=== PATIENT | male | born 1955 | race Caucasian/White ===

== ENCOUNTER 2019-02-22 07:32 | Outpatient (REF) | payer OTHER, SELFPAY ==
[2019-02-22 13:03] LABS: Anion Gap 8.3 mmol/L (3-11); BUN 17 mg/dL (7-18); CO2 26.7 mmol/L (21.0-32.0); CREATININE 0.92 mg/dL (0.70-1.30); Calcium 8.7 mg/dL (8.5-10.1); Chloride 104 mmol/L (98-107); Cholesterol 214 mg/dL (50-200); Glucose 90 mg/dL (70-100); HDL Cholesterol 75 mg/dL (40-60); LDL CHOLESTEROL 124 mg/dL (<100); Potassium 4.7 mmol/L (3.5-5.1); Sodium 139 mmol/L (136-145); Triglyceride 33 mg/dL (30-150)
== END 2019-02-22 07:52 ==
LOC: NCHCN 07:32
PROVIDERS: PCP Family Medicine; Visit Provider Family Medicine
DX: I10 Essential (primary) hypertension (principal); Z00.00 Encounter for general adult medical examination without abnormal findings; E66.9 Obesity, unspecified
CPT/HCPCS: 80048; 80061; 83721

== ENCOUNTER 2019-02-24 16:40 | Emergency (ER) | payer OTHER, SELFPAY ==
[2019-02-24 16:52] VITALS: BP 142/80; PULSE 66; RESP 16; TEMP 36; O2SAT 98
--- NOTE | 2019-02-24 17:17 | W.ED.GENAD ---
Discharge Plan Disposition Patient Disposition: HOME Condition: Stable Discharge Details Chief Complaint: Laceration Clinical Impression: Laceration of left wrist Primary Care Provider: Tony Strickland ED Provider: Bob Cabello Home Meds and New Rx's Prescriptions: Continued vitamin B complex 1 EACH capsule 1 ea PO DAILY RF: 0 valsartan 160 MG tablet 160 mg PO DAILY RF: 0 VITAMIN D3 2,000 UNIT capsule 2,000 unit PO DAILY RF: 0 ibuprofen [Advil] 200 MG tablet 2 tab PO PRN PRNRF: 0 Discharge Instructions Instructions: Laceration (ED) Additional Instructions: Please watch for any signs of infection and return immediately if these occur. Otherwise keep wound clean and dry and leave initial bandage on for the next 24 to 48 hours. After that point you may remove bandage and leave open to air and clean with mild soap and water. Return in 12 days for suture removal if healing well. Referrals: [facility] Emergency Dept. [Outside] (Return in 12 days for suture removal.) Medical Decision Making 1 cm laceration to left wrist. Wound thoroughly irrigated and wound was explored to base in bloodless field and shows only adipose tissue. Normal movement sensation and cap refill to thumb no other injuries noted. Patient gave verbal consent to wound closure. 2 mL's of 1% lidocaine was injected superficially for anesthetic control. #3 4-0 Ethilon simple interrupted sutures were utilized to close the wound. Wound was then covered with bacitracin and sterile bandage. Patient to watch for signs of infection return immediately if these occur otherwise to return in 12 days for suture removal. We could not verify the patient's tetanus status but he states that he travels out of the country quite often and is sure that his last tetanus was 5 years ago. Due to this fact I do not feel the patient needs tetanus at this time but patient was informed that he should verify last tetanus and received tetanus within 48 hours if it is not up-to-date. After discussion of diagnosis and plan of care patient has no further needs, questions, or concerns and states clear understanding to return to the emergency department for any worsening symptoms. HPI General Mode of arrival: ambulatory. Date/Time Provider Initiated Documentation: 02/24/19 17:17. Limitations to Documentation: no limitations. Information obtained by: RN notes reviewed. History of Present Illness 63 year old M presents to the emergency department with the chief complaint of Left wrist laceration, described as mild, with intensity rated at 3. Quality is described as sharp, and is localized to the left and upper extremity. Patient started experiencing this hour(s) (1) and it has been constant. No relieving factors improve symptom(s), Patient did receive the following treatments prior to arrival, none Related Data Home Medications Medication Instructions Recorded Confirmed Vitamin D3 2,000 unit PO DAILY 04/18/16 05/27/16 valsartan 160 mg PO DAILY 04/18/16 02/24/19 vitamin B complex 1 ea PO DAILY 04/18/16 02/24/19 ibuprofen [Advil] 2 tab PO PRN PRN 05/27/16 05/27/16 Allergies Allergy/AdvReac Type Severity Reaction Status Date / Time Penicillins Allergy Intermediate unknown, Unverified 05/27/16 08:39 but hospitalized as chiled due to reaction General Stated Complaint: Laceration RUDDY: 4 Review of Systems Cardiovascular Denies syncope and Denies lightheadedness Musculoskeletal Denies deformity, Denies limited range of motion and Denies numbness Integumentary/Breasts Reports as per HPI Neurologic Denies syncope, Denies numbness and Denies paresthesias [facility] Surgical History Colonoscopy - IV Sedation (05/27/16) Social History Smoking/Tobacco Use Status: Former Tobacco Use Drug use: Never Do you feel safe at home: Yes Do you feel safe in your relationship?: Yes Exam Const General: cooperative and no acute distress Orientation: alert, awake and oriented x3 Limitations: mental status not altered Resp Effort & Inspection: normal respiratory effort and able to speak in complete sentences Cardio Rate: regular rate Rhythm: regular rhythm Neuro General: alert, awake, oriented x3, gait normal, tone normal, moves all extremities, normal light touch, pain and propioception and no focal motor deficits Motor: no movement abnormalities noted Sensory Exam: no sensory deficits noted Extrem General: normal exam except as noted Left upper extremity: wrist Details: normal ROM, laceration (1 cm ), normal vascular exam and radial pulse present and hand Details: neuromotor exam normal, neurosensory exam normal and tendon exam normal Course Vital Signs Temperature 36 C L 02/24/19 16:52 Pulse 66 02/24/19 16:52 Respiratory Rate 16 02/24/19 16:52 Blood Pressure 142/80 H 02/24/19 16:52 Pulse Oximetry 98 02/24/19 16:52 Temperature 36 C L 02/24/19 16:52 Temperature Source Temporal Artery Scan 02/24/19 16:52 Pulse 66 02/24/19 16:52 Respiratory Rate 16 02/24/19 16:52 Blood Pressure 142/80 H 02/24/19 16:52 Pulse Oximetry 98 02/24/19 16:52 Oxygen Delivery Method Room Air 02/24/19 16:52 Oxygen Flow Rate 0 02/24/19 16:52 Pain Level 3 02/24/19 16:52
--- NOTE | 2019-02-24 17:20 | ED.GENADUL_ITS ---
Discharge Plan Disposition Patient Disposition: HOME Condition: Stable Discharge Details Chief Complaint: Laceration Clinical Impression: Laceration of left wrist Primary Care Provider: Tony Strickland ED Provider: Bob Cabello Home Meds and New Rx's Prescriptions: Continued vitamin B complex 1 EACH capsule 1 ea PO DAILY RF: 0 valsartan 160 MG tablet 160 mg PO DAILY RF: 0 VITAMIN D3 2,000 UNIT capsule 2,000 unit PO DAILY RF: 0 ibuprofen [Advil] 200 MG tablet 2 tab PO PRN PRNRF: 0 Discharge Instructions Instructions: Laceration (ED) Additional Instructions: Please watch for any signs of infection and return immediately if these occur. Otherwise keep wound clean and dry and leave initial bandage on for the next 24 to 48 hours. After that point you may remove bandage and leave open to air and clean with mild soap and water. Return in 12 days for suture removal if healing well. Referrals: [facility] Emergency Dept. [Outside] (Return in 12 days for suture removal.) Medical Decision Making 1 cm laceration to left wrist. Wound thoroughly irrigated and wound was explored to base in bloodless field and shows only adipose tissue. Normal movement sensation and cap refill to thumb no other injuries noted. Patient gave verbal consent to wound closure. 2 mL's of 1% lidocaine was injected superficially for anesthetic control. #3 4-0 Ethilon simple interrupted sutures were utilized to close the wound. Wound was then covered with bacitracin and sterile bandage. Patient to watch for signs of infection return immediately if these occur otherwise to return in 12 days for suture removal. We could not verify the patient's tetanus status but he states that he travels out of the country quite often and is sure that his last tetanus was 5 years ago. Due to this fact I do not feel the patient needs tetanus at this time but patient was informed that he should verify last tetanus and received tetanus within 48 hours if it is not up-to-date. After discussion of diagnosis and plan of care patient has no further needs, questions, or concerns and states clear understanding to return to the emergency department for any worsening symptoms. HPI General Mode of arrival: ambulatory . Date/Time Provider Initiated Documentation: 02/24/19 17:17 . Limitations to Documentation: no limitations . Information obtained by: RN notes reviewed . History of Present Illness 63 year old M presents to the emergency department with the chief complaint of Left wrist laceration, described as mild, with intensity rated at 3. Quality is described as sharp, and is localized to the left and upper extremity. Patient started experiencing this hour(s) (1) and it has been constant. No relieving factors improve symptom(s), Patient did receive the following treatments prior to arrival, none Related Data Home Medications Medication Instructions Recorded Confirmed Vitamin D3 2,000 unit PO DAILY 04/18/16 05/27/16 valsartan 160 mg PO DAILY 04/18/16 02/24/19 vitamin B complex 1 ea PO DAILY 04/18/16 02/24/19 ibuprofen [Advil] 2 tab PO PRN PRN 05/27/16 05/27/16 Allergies Allergy/AdvReac Type Severity Reaction Status Date / Time Penicillins Allergy Intermediate unknown, Unverified 05/27/16 08:39 but hospitalized as chiled due to reaction General Stated Complaint: Laceration RUDDY: 4 Review of Systems Cardiovascular Denies syncope and Denies lightheadedness Musculoskeletal Denies deformity, Denies limited range of motion and Denies numbness Integumentary/Breasts Reports as per HPI Neurologic Denies syncope, Denies numbness and Denies paresthesias [facility] Surgical History Colonoscopy - IV Sedation (05/27/16) Social History Smoking/Tobacco Use Status: Former Tobacco Use Drug use: Never Do you feel safe at home: Yes Do you feel safe in your relationship?: Yes Exam Const General: cooperative and no acute distress Orientation: alert, awake and oriented x3 Limitations: mental status not altered Resp Effort & Inspection: normal respiratory effort and able to speak in complete sentences Cardio Rate: regular rate Rhythm: regular rhythm Neuro General: alert, awake, oriented x3, gait normal, tone normal, moves all extremities, normal light touch, pain and propioception and no focal motor deficits Motor: no movement abnormalities noted Sensory Exam: no sensory deficits noted Extrem General: normal exam except as noted Left upper extremity: wrist Details: normal ROM, laceration (1 cm ), normal vascular exam and radial pulse present and hand Details: neuromotor exam normal, neurosensory exam normal and tendon exam normal Course Vital Signs Temperature 36 C L 02/24/19 16:52 Pulse 66 02/24/19 16:52 Respiratory Rate 16 02/24/19 16:52 Blood Pressure 142/80 H 02/24/19 16:52 Pulse Oximetry 98 02/24/19 16:52 Temperature 36 C L 02/24/19 16:52 Temperature Source Temporal Artery Scan 02/24/19 16:52 Pulse 66 02/24/19 16:52 Respiratory Rate 16 02/24/19 16:52 Blood Pressure 142/80 H 02/24/19 16:52 Pulse Oximetry 98 02/24/19 16:52 Oxygen Delivery Method Room Air 02/24/19 16:52 Oxygen Flow Rate 0 02/24/19 16:52 Pain Level 3 02/24/19 16:52
[2019-02-24 17:28] VITALS: BP 142/80; PULSE 66; RESP 16; TEMP 36; O2SAT 98
== END 2019-02-24 17:25 | disposition home or self-care (01) ==
PROVIDERS: Emergency Provider Nurse Practitioner Family; PCP Family Medicine
DX: S61.512A Laceration without foreign body of left wrist, initial encounter (principal); W26.8XXA Contact with other sharp object(s), not elsewhere classified, initial encounter
CPT/HCPCS: 12001

== ENCOUNTER 2019-03-08 07:33 | Emergency (ER) | payer OTHER, SELFPAY ==
--- NOTE | 2019-03-08 07:39 | W.ED.GENAD ---
Discharge Plan Disposition Patient Disposition: HOME Condition: Good Discharge Details Chief Complaint: SutureRem Clinical Impression: Encounter for removal of sutures Primary Care Provider: Tony Strickland ED Provider: Joseluis Lai Home Meds and New Rx's Prescriptions: Continued vitamin B complex 1 EACH capsule 1 ea PO DAILY RF: 0 VITAMIN D3 2,000 UNIT capsule 2,000 unit PO DAILY RF: 0 ibuprofen [Advil] 200 MG tablet 2 tab PO PRN PRNRF: 0 Discharge Instructions Additional Instructions: Would continue to apply antibiotic ointment and keep covered while wound is still healing. Return to ED for increasing pain, redness, drainage. Referrals: [facility] [Provider Group] Medical Decision Making Sutures removed. Wound did not open further. We will continue to heal from the inside out where it opened up slightly. No evidence of infection. Patient discharged home and will return if any increasing pain, swelling, discharge. HPI General Mode of arrival: ambulatory. Date/Time Provider Initiated Documentation: 03/08/19 07:37. Limitations to Documentation: no limitations. Information obtained by: patient. HPI Narrative: Patient here for suture removal. Sutures placed in left wrist area. Couple days after they were placed his dog got him in the same general area. The wound opened up a little bit but the stitches remained intact. He did not come in at that time as the stitches were still in place. There has been no drainage or pain. Related Data Home Medications Medication Instructions Recorded Confirmed Vitamin D3 2,000 unit PO DAILY 04/18/16 05/27/16 vitamin B complex 1 ea PO DAILY 04/18/16 02/24/19 ibuprofen [Advil] 2 tab PO PRN PRN 05/27/16 05/27/16 Allergies Allergy/AdvReac Type Severity Reaction Status Date / Time Penicillins Allergy Intermediate unknown, Unverified 03/08/19 07:47 but hospitalized as chiled due to reaction General Stated Complaint: SutureRem RUDDY: 5 PFSH Medical History HTN (hypertension) (Chronic) Surgical History Colonoscopy - IV Sedation (Inactive 05/27/16) Social History Smoking/Tobacco Use Status: Former Tobacco Use Drug use: Never Do you feel safe at home: Yes Do you feel safe in your relationship?: Yes Exam Narrative Exam Narrative: Laceration on the left wrist area that has opened up slightly. There is erythema in the areas of sutures but this is more inflammatory reaction and not infection. There is no drainage. There is no warmth. Hand remains neurovascularly intact. Course Respiratory Effort 03/08/19 07:36
--- NOTE | 2019-03-08 07:42 | ED.GENADUL_ITS ---
Discharge Plan Disposition Patient Disposition: HOME Condition: Good Discharge Details Chief Complaint: SutureRem Clinical Impression: Encounter for removal of sutures Primary Care Provider: Tony Strickland ED Provider: Joseluis Lai Home Meds and New Rx's Prescriptions: Continued vitamin B complex 1 EACH capsule 1 ea PO DAILY RF: 0 VITAMIN D3 2,000 UNIT capsule 2,000 unit PO DAILY RF: 0 ibuprofen [Advil] 200 MG tablet 2 tab PO PRN PRNRF: 0 Discharge Instructions Additional Instructions: Would continue to apply antibiotic ointment and keep covered while wound is still healing. Return to ED for increasing pain, redness, drainage. Referrals: [facility] [Provider Group] Medical Decision Making Sutures removed. Wound did not open further. We will continue to heal from the inside out where it opened up slightly. No evidence of infection. Patient discharged home and will return if any increasing pain, swelling, discharge. HPI General Mode of arrival: ambulatory . Date/Time Provider Initiated Documentation: 03/08/19 07:37 . Limitations to Documentation: no limitations . Information obtained by: patient . HPI Narrative: Patient here for suture removal. Sutures placed in left wrist area. Couple days after they were placed his dog got him in the same general area. The wound opened up a little bit but the stitches remained intact. He did not come in at that time as the stitches were still in place. There has been no drainage or pain. Related Data Home Medications Medication Instructions Recorded Confirmed Vitamin D3 2,000 unit PO DAILY 04/18/16 05/27/16 vitamin B complex 1 ea PO DAILY 04/18/16 02/24/19 ibuprofen [Advil] 2 tab PO PRN PRN 05/27/16 05/27/16 Allergies Allergy/AdvReac Type Severity Reaction Status Date / Time Penicillins Allergy Intermediate unknown, Unverified 03/08/19 07:47 but hospitalized as chiled due to reaction General Stated Complaint: SutureRem RUDDY: 5 PFSH Medical History HTN (hypertension) (Chronic) Surgical History Colonoscopy - IV Sedation (Inactive 05/27/16) Social History Smoking/Tobacco Use Status: Former Tobacco Use Drug use: Never Do you feel safe at home: Yes Do you feel safe in your relationship?: Yes Exam Narrative Exam Narrative: Laceration on the left wrist area that has opened up slightly. There is erythema in the areas of sutures but this is more inflammatory reaction and not infection. There is no drainage. There is no warmth. Hand remains neurovascularly intact. Course Respiratory Effort 03/08/19 07:36
== END 2019-03-08 07:45 | disposition home or self-care (01) ==
LOC: ER 07:43
PROVIDERS: Emergency Provider Emergency Medicine; PCP Family Medicine
DX: S61.512D Laceration without foreign body of left wrist, subsequent encounter (principal); X58.XXXD Exposure to other specified factors, subsequent encounter; Z48.02 Encounter for removal of sutures

== ENCOUNTER 2019-09-20 12:05 | Emergency (ER) | payer OTHER, SELFPAY ==
[2019-09-20 12:09] VITALS: BP 156/82; PULSE 69; RESP 16; O2SAT 100
--- NOTE | 2019-09-20 12:25 | W.ED.GENAD ---
Discharge Plan Disposition Patient Disposition: HOME Condition: Improving Discharge Details Chief Complaint: Orthopedic Clinical Impression: Closed fracture of distal end of right fibula Primary Care Provider: Tony Strickland ED Provider: Ace Gamez Home Meds and New Rx's Prescriptions: Continued vitamin B complex 1 EACH capsule 1 ea PO DAILY RF: 0 VITAMIN D3 2,000 UNIT capsule 2,000 unit PO DAILY RF: 0 ibuprofen [Advil] 200 MG tablet 2 tab PO PRN PRNRF: 0 Discharge Instructions Instructions: Leg Fracture (ED) Additional Instructions: Crutches and nonweightbearing until seen in follow-up in orthopedic clinic. Remove walking boot for bathing. Apply ice to reduce pain and swelling. Continue Tylenol and ibuprofen if needed for pain. Please call the orthopedic office at [phone] for a follow-up appointment. Return for increasing pain, development of cold/blue/numbness of the toes, or any other acute concerns. Medical Decision Making 63-year-old male presents from home with his . He is walking the dog this morning, stepped on uneven rock and twisted his right ankle. He was able to ambulate home, took ibuprofen and applied ice. There was no other injury. His blood pressure 156/82, otherwise reassuring exam. Referred for x-ray. Patient has a distal fibula fracture. No other acute findings appreciated. Place an equalizer walking boot with crutches and nonweightbearing. He will follow-up in orthopedics to ensure routine healing. Discussed with him home care as well as return indications. HPI General Mode of arrival: wheelchair. Date/Time Provider Initiated Documentation: 09/20/19 12:21. Limitations to Documentation: no limitations. Information obtained by: patient and family. History of Present Illness 63 year old M presents to the emergency department with the chief complaint of Right ankle pain after twisting while walking the dog, described as moderate, Quality is described as dull and constant, and is localized to the right and lower extremity. Patient reports no radiation. Patient started experiencing this hour(s) and it has been constant. Rest improves symptom(s), Movement worsens symptoms . Patient notes no other symptoms.; denies syncope. Patient did receive the following treatments prior to arrival, NSAID and cold therapy Related Data Home Medications Medication Instructions Recorded Confirmed Vitamin D3 2,000 unit PO DAILY 04/18/16 09/20/19 vitamin B complex 1 ea PO DAILY 04/18/16 09/20/19 ibuprofen [Advil] 2 tab PO PRN PRN 05/27/16 09/20/19 Allergies Allergy/AdvReac Type Severity Reaction Status Date / Time Penicillins Allergy Intermediate unknown, Unverified 09/20/19 12:24 but hospitalized as chiled due to reaction General Stated Complaint: Orthopedic RUDDY: 4 Review of Systems Narrative: Patient has otherwise recently been well. Denies other injury. No numbness or tingling. No loss of consciousness. 4 systems reviewed and otherwise negative [facility] Medical History HTN (hypertension) (Chronic) Social History Smoking/Tobacco Use Status: Former Tobacco Use Drug use: Never Do you feel safe at home: Yes Do you feel safe in your relationship?: Yes Exam Narrative Exam Narrative: GEN: awake, alert, oriented 3. Pleasant, well groomed, interactive. HEAD: Normocephalic, atraumatic ENT: Mucous membranes moist, oropharynx unremarkable, External ear exam unremarkable EYES: PERRL, EOMI EXT: Full ROM, right lateral greater than medial malleoli tenderness and swelling. 2+ DP. Sensation intact throughout. Neuro: Grossly normal neurologic exam, conversant, interactive. Psych: Speech fluent, thoughts congruent, affect normal Course Vital Signs Vital signs: Vital Signs Pulse 69 09/20/19 12:09 Respiratory Rate 16 09/20/19 12:09 Blood Pressure 156/82 H 09/20/19 12:09 Pulse Oximetry 100 09/20/19 12:09 Pulse 69 09/20/19 12:09 Respiratory Rate 16 09/20/19 12:09 Blood Pressure 156/82 H 09/20/19 12:09 Blood Pressure Position Supine 09/20/19 12:09 Pulse Oximetry 100 09/20/19 12:09 Oxygen Delivery Method Room Air 09/20/19 12:09 Oxygen Flow Rate 0 09/20/19 12:09 Pain Level 4 09/20/19 12:09
--- NOTE | 2019-09-20 12:37 | DI.RAD_ITS ---
EXAM: XR ANKLE RT COMPLETE CLINICAL HISTORY: lateral pain and swelling COMPARISON: No exams were available for comparison FINDINGS: Four views were obtained. There is a fracture of the distal fibula, which appears essentially nondis placed. Minimal linear radiolucency is projected over the distal tibia adjacent to the tibiofibular joint on a single view, possibility of nondisplaced fracture of the distal tibia not excluded but no abnormality is identified on the other views. The ankle mortise appears well maintained. IMPRESSION: Nondisplaced fracture of the distal fibula.
== END 2019-09-20 13:06 | disposition home or self-care (01) ==
LOC: ER 13:02
PROVIDERS: Emergency Provider Emergency Medicine; PCP Family Medicine
DX: S82.491A Other fracture of shaft of right fibula, initial encounter for closed fracture (principal); X50.9XXA Other and unspecified overexertion or strenuous movements or postures, initial encounter; Y93.K1 Activity, walking an animal; I10 Essential (primary) hypertension
CPT/HCPCS: 27786; 73610; E0114; L4361

== ENCOUNTER 2019-10-02 09:25 | Outpatient (CLI) | payer OTHER, SELFPAY ==
--- NOTE | 2019-10-02 09:25 | DI.RAD_ITS ---
EXAM: XR ANKLE RT COMPLETE INDICATION: f/u. COMPARISON: XR ANKLE RT COMPLETE from 09/20/2019 TECHNIQUE: 2D digital imaging was performed. FINDINGS: There has been no change in alignment of the nondisplaced fracture of the distal right fibula. The p reviously noted lucency seen in the distal tibia corresponds to a nondisplaced posterior malleolar fr acture. The posterior malleolar fracture is better appreciated on the current examination. There is mild soft tissue swelling about the ankle. Mild spurring is seen at the posterior calcaneus. There is a small enthesophyte at the Achilles insertion site. IMPRESSION: Nondisplaced fractures involving the distal right fibula and the posterior malleolus.
== END 2019-10-02 09:45 ==
PROVIDERS: PCP Family Medicine; Visit Provider Orthopaedic Surgery
DX: S82.841D Displaced bimalleolar fracture of right lower leg, subsequent encounter for closed fracture with routine healing (principal)
CPT/HCPCS: 73610

== ENCOUNTER 2019-10-30 09:39 | Outpatient (CLI) | payer OTHER, SELFPAY ==
--- NOTE | 2019-10-30 09:14 | DI.RAD_ITS ---
EXAM: XR ANKLE RT COMPLETE INDICATION: f/u fracture. COMPARISON: XR ANKLE RT COMPLETE from 10/02/2019 TECHNIQUE: 2D digital imaging was performed. FINDINGS: There has been some increase in callous formation around the previously noted fracture of the distal fibula. No new abnormalities are seen.
== END 2019-10-30 09:59 ==
PROVIDERS: PCP Family Medicine; Visit Provider Orthopaedic Surgery
DX: S82.841D Displaced bimalleolar fracture of right lower leg, subsequent encounter for closed fracture with routine healing (principal)
CPT/HCPCS: 73610

== ENCOUNTER 2019-11-27 11:52 | Outpatient (CLI) | payer OTHER, SELFPAY ==
--- NOTE | 2019-11-27 08:55 | DI.RAD_ITS ---
EXAM: XR ANKLE RT COMPLETE INDICATION: f/u fracture. COMPARISON: XR ANKLE RT COMPLETE from 10/30/2019 TECHNIQUE: 2D digital imaging was performed. FINDINGS: There is no change in alignment of the distal right fibular fracture. There has been increased heali ng since the prior examination. IMPRESSION
== END 2019-11-27 12:12 ==
PROVIDERS: PCP Family Medicine; Visit Provider Orthopaedic Surgery
DX: S82.841D Displaced bimalleolar fracture of right lower leg, subsequent encounter for closed fracture with routine healing (principal)
CPT/HCPCS: 73610

== ENCOUNTER 2020-03-03 09:41 | Outpatient (REF) | payer OTHER, SELFPAY ==
--- NOTE | 2020-03-03 09:40 | SKI_PTH ---
PATIENT: Carlos Alberto Rogers LOC: [facility] U#:[id number] AGE/SX: 64/M ROOM: RE03/03/[address]: Tony Strickland : 1955 BED: DIS: 03/03/2020 SPEC #: [id number] RECD: 03/03/20 14:53 STATUS: KARMA CRANE #: [id number] INDIRA: 03/03/20 09:[address]: Tony Strickland DEPT: Surgical Specimen RECD BY: Mariel Sifuentes Tissues: 1 - SKIN BIOPSY(SHAVE/PUNCH) Procedures: SKIN LEVEL 4 Comments: [id number]
[2020-03-03 15:53] LABS: Anion Gap 6.8 mmol/L (3-11); BUN 9 mg/dL (7-18); CO2 26.2 mmol/L (21.0-32.0); CREATININE 0.83 mg/dL (0.70-1.30); Chloride 102 mmol/L (98-107); Glucose 100 mg/dL (74-106); Potassium 4.3 mmol/L (3.5-5.1); Sodium 135 mmol/L (136-145)
== END 2020-03-03 10:01 ==
LOC: NCHCN 09:41
PROVIDERS: PCP Family Medicine; Visit Provider Family Medicine
DX: Z00.00 Encounter for general adult medical examination without abnormal findings (principal); I10 Essential (primary) hypertension; L82.0 Inflamed seborrheic keratosis
CPT/HCPCS: 80048; 88305

== ENCOUNTER 2021-04-30 17:36 | Outpatient (REF) | payer OTHER, SELFPAY ==
[2021-04-30 16:33] LABS: Anion Gap 12.2 mmol/L (3-11); BUN 18 mg/dL (7-18); CO2 23.8 mmol/L (21.0-32.0); CREATININE 0.8 mg/dL (0.70-1.30); Calcium 8.9 mg/dL (8.5-10.1); Chloride 100 mmol/L (98-107); Glucose 105 mg/dL (74-106); Potassium 4.6 mmol/L (3.5-5.1); Sodium 136 mmol/L (136-145)
[2021-04-30 19:39] LABS: Calculated LDL 151 mg/dL (<100); Cholesterol 244 mg/dL (<200); HDL Cholesterol 83 mg/dL (40-60); Triglyceride 51 mg/dL (<150)
[2021-05-03 11:29] LABS: PSA, Screening 0.6 ng/mL (0.0-4.5)
== END 2021-04-30 17:37 | disposition home or self-care (01) ==
LOC: NCHCN 17:36
PROVIDERS: PCP Family Medicine; Visit Provider Family Medicine
DX: Z00.00 Encounter for general adult medical examination without abnormal findings (principal)
CPT/HCPCS: 80048; 80061; 84153

== ENCOUNTER 2021-11-19 03:57 | Outpatient (CLI) | payer OTHER, SELFPAY ==
[2021-11-19 12:53] LABS: Source Nasal/Nares
[2021-11-19 17:46] LABS: COVID-19 PCR Negative (Negative)
== END 2021-11-19 03:58 | disposition home or self-care (01) ==
LOC: LBO 03:57
PROVIDERS: PCP Family Medicine; Visit Provider Surgery
DX: Z20.822 Contact with and (suspected) exposure to COVID-19 (principal)
CPT/HCPCS: 87635

== ENCOUNTER 2021-11-22 09:51 | Day surgery (SDC) | payer OTHER, SELFPAY ==
--- NOTE | 2021-11-21 16:37 | W.ANESPRE ---
General Info Date of Service Date Performed: 11/22/21 Height: 5 ft 11 in Weight: 111 kg Body Mass Index (BMI): 34.1 Surgical Procedure: Operation Date: 11/22/21 11:50 Proposed Procedures Side Surgeon p Colonoscopy Victorina Quezada MD Meds Allergies and Home Medications Allergies Allergy/AdvReac Type Severity Reaction Status Date / Time Penicillins Allergy Intermediate unknown, Verified 11/22/21 10:04 but hospitalized as chiled due to reaction Home Medication Medication Instructions Recorded vitamin B complex 1 ea PO DAILY 04/18/16 ibuprofen [Advil] 2 tab PO PRN PRN 05/27/16 cholecalciferol (vitamin D3) 25 25 mcg PO DAILY 06/08/21 mcg (1,000 unit) capsule valsartan 80 mg tablet 80 mg PO DAILY 06/08/21 bisacodyl 5 mg tablet,delayed 5 mg PO ONCE #4 tab 11/12/21 release polyethylene glycol 3350 17 238 g PO ONCE #238 g 11/12/21 gram/dose oral powder Current Visit Medications: Current Medications Generic Name Dose Route Start Last Admin Trade Name Freq PRN Reason Stop Dose Admin Ringer's Solution 1,000 mls @ 80 mls/hr 11/22/21 06:00 IV 12/19/21 23:59 INFUSION MICHEL IV Miscellaneous Supplies 1 each 11/22/21 06:00 Iv Access IV 12/19/21 23:59 DIRECTED MICHEL Sodium Chloride 0 ml 11/22/21 06:00 Normal Saline Flush 10 Ml Syr IV 12/19/21 23:59 PRN PRN Sodium Chloride 0 ml 11/22/21 06:00 Normal Saline 10 Ml Vial IJ 12/19/21 23:59 DIRECTED PRN Sterile Water 0 ml 11/22/21 06:00 Water,Injection,Sterile 10 Ml Vial IJ 12/19/21 23:59 DIRECTED PRN PFSH Active Problems Active Problems: Problem Status Onset Code Vitamin D deficiency E55.9 Screening for colon cancer Z12.11 Sciatica M54.30 Bimalleolar fracture of right ankle S82.841A Anemia D64.9 Medical History Medical History History of adenomatous polyp of colon HTN (hypertension) Surgical History Surgical History Colonoscopy - IV Sedation (05/27/16) Tobacco Smoking/Tobacco Use Status: Former Tobacco Use Alcohol Alcohol Intake: current Alcohol intake frequency: 3 or more drinks per day Alcohol type: beer, wine and hard liquor Substance Use Substance use: Never Substance use type: does not use Vital Signs and Lab Results Vital Signs Most Recent Vital Signs in EMR: Temp Pulse Resp BP Pulse Ox 36.6 C 85 18 143/104 H 97 11/22/21 10:00 11/22/21 10:00 11/22/21 10:00 11/22/21 10:00 11/22/21 10:00 Lab Results Blood Type / Crossmatch: No Data to Display Complete Blood Count: No Data to Display Complete Metabolic Panel: No Data to Display Liver Function Panel: No Data to Display Coagulation Panel: No Data to Display Cardiac Panel: No Data to Display Arterial Blood Gas: No Data to Display Venous Blood Gas: No Data to Display Pancreas Panel: No Data to Display Thyroid Panel: No Data to Display Infectious Disease: Coronavirus (COVID-19)(PCR) Negative (Negative) 11/19/21 08:38 11/19/21 Coronavirus 2019 Source Nasal/Nares 11/19/21 08:38 11/19/21 Blood Cultures: No Data to Display Toxicology Panel: No Data to Display Anesthesia Assessment and Plan Anesthesia History Personal History: No History of Anesthesia Complications Family History: No Family History of Anesthesia Complications Exercise Tolerance Exercise Tolerance: Metabolic Equivalents>4 Cardiac & Pulmonary Exam Cardiac Exam: Normal S1/S2 Heart Sounds Pulmonary Exam: Clear Bilateral Breath Sounds Implantable Cardiac Device Does patient have a Pacemaker or an ICD?: No Airway Exam Known Difficult Airway: No Mallampati Class: 2 Mouth Opening: Normal (> 3cm) Thyromental Distance: Less than 3 cm Neck Range of Motion: Full ROM Neck Circumference: Normal Teeth Condition: Normal Dentition ASA Classification ASA Score: ASA 2 Emergency Case?: No NPO Status NPO Status: NPO Clears >2 hours, Solids >8 hours Anesthesia Plan Resuscitation Status: Full Code Anesthesia Technique: General Anesthesia Airway Planned: Natural Airway Monitors Used: Standard Monitors Preoperative Comments:: 65 yo male with history of polyps for colonoscopy. Sig PMHx: daily EtOH, HTN (valsartan).
--- NOTE | 2021-11-22 06:56 | W.COLOREPORT ---
Colonoscopy Report Date of procedure: 11/22/21 Pre-op diagnosis general: Colon Cancer Screening for history of Colon polyps Post-op diagnosis procedure note: other (polyp) Procedure: Colonoscopy with polypectomy Surgeon: Victorina Quezada Anesthesia Type: General:No Airway Estimated blood loss (mL): 2 Pathology: other (Ascending colon polyp) Complications: None Disposition: same day Indications: 65 y/o male with history of HTN and anemia presents for colonoscopy screening pre-op. His last screening was in 2016, which was remarkable for sessile serrated adenoma. He denies a family history of colon cancer. He denies any changes in bowel habits including bloody or black tarry stools, abdominal pain, diarrhea or constipation. He denies constitutional symptoms. Denies use of marijuana or any other recreational or illegal drugs. He denies chest pain, palpitations, dyspnea or dyspnea with exertion. He denies prior history or family history of adverse reactions or complications with anesthesia. The patient denies any history of stroke, SD, seizures, bleeding or clotting disorders. He denies having any implanted metal in his body. Prep: Miralax/Dulcolax Procedure Start Time: 12:21 Procedure End Time: 13:01 Retraction Time: 16 minutes Findings: One polyp Procedure Description: After informed consent was obtained the patient was taken to the procedure room and placed in a left decubitous position. Monitors were applied and a time out was done. The patients name, date of , procedure, allergies to medications and metal in their body was reviewed. The patient was then sedated. Once sedated and comfortable a rectal exam was done. External exam was normal. Internal exam revealed a normal sphincter tone and no palpable masses. The prostate felt smooth. The scope was then introduced and retro-flexed. No internal hemorrhoids, polyps or masses were identified on retro-flexion. The scope was then advanced to the cecum without difficulty. The ileocecal vlave and appendiceal orifice were identified. The prep was adequate. The scope was then slowly retracted over 16 minutes back into the rectum. Polyps were removed with a hot snare in the ascending colon. There was no diverticulosis noted. The scope was removed and the patient was woken up and taken back to Same day surgery in stable condition. The patient tolerated the procedure well and there were no immediate complications. Follow up: The patient should follow up in 5 years unless they develop changes in bowel habits or other new gastrointestinal complaints.
--- NOTE | 2021-11-22 06:56 | W.PM.DSUDISC ---
Discharge Plan Disposition Patient Disposition: HOME Condition: Good Discharge Details Reason For Visit: Colonoscopy Attending Provider: Victorina Quezada Primary Care Provider: Tony Strickland Home Meds and New Rx's Prescriptions: Continued vitamin B complex 1 EACH capsule 1 ea PO DAILY RF: 0 valsartan 80 mg tablet 80 mg PO DAILY RF: 0 cholecalciferol (vitamin D3) 25 mcg (1,000 unit) capsule 25 mcg PO DAILY RF: 0 ibuprofen [Advil] 200 MG tablet 2 tab PO PRN PRNRF: 0 Discontinued polyethylene glycol 3350 17 gram/dose powder 238 g PO ONCE Qty: 238 RF: 0 bisacodyl [Dulcolax (bisacodyl)] 5 mg tablet,delayed release (DR/EC) 5 mg PO ONCE Qty: 4 RF: 0 Discharge Instructions Instructions: Colorectal Polyps (DC) Additional Instructions: Findings: 1 polyp Follow up: most likely 5 years Please call if you develop: fevers >101.5 Nausea or Vomiting Abdominal pain that is not transient Rectal bleeding that is more then a tbsp A hard abdomen and inability to pass gas DAY SURGERY UNIT POST ENDOSCOPY INSTRUCTIONS Instructions for everyone who is given Anesthesia: For your safety, please do the following for the next 24 Hours: a. Do not drive or operate dangerous equipment b. Do not drink alcohol beverages or use any recreational drugs for the first 24 hours or while taking pain medications. The medications in your body may have a reaction that can be dangerous. c. Do not make any important decisions or sign any important papers 1. Generally there are no restrictions on your activity after a day or so has gone by, but you may feel a bit fatigued for a few days. 2. After you arrive home you may have a light meal and return to a normal diet as you can tolerate it without feeling sick to your stomach. 3. After surgery, you may feel pain or discomfort. This should be only transient, but if it persists please contact your doctor. 4. If there are any questions regarding the findings of your procedure, please feel free to contact your doctor. 6. If you are unable to contact your doctor with a problem, contact the hospital at [phone]. 7. Continue all your regular medications unless directed otherwise. I understand the above instructions and have no questions. Signature of Patient or Responsible Adult Escort Date/Time Name of Responsible Adult Escort Signature of Nurse Date/Time Activity:: Activity as Tolerated Diet:: As Tolerated Discharge Orders Discharge Orders: Discharge Order (Routine); Ordered 11/22/21 Ordered By: Victorina Quezada
[2021-11-22 10:00] VITALS: BP 143/104; PULSE 85; RESP 18; TEMP 36.6; O2SAT 97
[2021-11-22] MEDS: Lactated Ringers 1,000 ML 80 ML IV (10:15)
[2021-11-22 11:02] VITALS: BMI 34.1
--- NOTE | 2021-11-22 12:50 | BOWEL_PTH ---
PATIENT: Carlos Alberto Rogers LOC: [facility] U#:[id number] AGE/SX: 65/M ROOM: RE11/22/[address]: Victorina Quezada MD : 1955 BED: DIS: 11/22/2021 SPEC #: [id number] RECD: 11/22/21 13:56 STATUS: KARMA REQ #: [id number] INDIRA: 11/22/21 12:[address]: Victorina Quezada DEPT: Surgical Specimen RECD BY: Mariel Sifuentes ENTERED: 11/22/21 13:56 SP TYPE: Bowel OTHR DR: Tony Strickland Tissues: 1 - BIOPSY BOWEL Procedures: GROSS AND MICRO LEVEL 4 Comments: [id number]
[2021-11-22 13:12] VITALS: BP 103/79; PULSE 82; RESP 16; TEMP 36.1; O2SAT 96
--- NOTE | 2021-11-22 13:30 | W.ANESPOSTOP ---
Postoperative Evaluation Date, Time and Location Date Performed: 11/22/21 Time Performed: 13:30 Patient Location: Day Surgery Unit Vital Signs Most Recent Imported Vital Signs: Most Recent Vital Signs Temp Pulse Resp BP Pulse Ox 36.1 C L 82 16 103/79 96 11/22/21 13:12 11/22/21 13:12 11/22/21 13:12 11/22/21 13:12 11/22/21 13:12 Pain Score Most Recent Pain Score: Most Recent Pain Score Pain Level 0 11/22/21 13:12 Assessment Mental Status: Awake (Alert & Oriented to Patient Baseline) Airway and Respiratory Function: Patent airway with normal (patient baseline) respiratory exam Cardiovascular Function: Hemodynamically Stable Hydration Status: Adequately Hydrated Nausea & Vomiting: No Nausea or Vomiting Pain: Pt. Denies Any Pain Peripheral Nerve Block: Patient did not receive a nerve block
[2021-11-22 13:40] VITALS: BP 118/84; PULSE 53; RESP 16; TEMP 36.4; O2SAT 99
== END 2021-11-22 14:12 | disposition home or self-care (01) ==
LOC: SUR 09:52
PROVIDERS: PCP Family Medicine; Visit Provider Surgery
PROC: 0DJD8ZZ Inspection of Lower Intestinal Tract, Via Natural or Artificial Opening Endoscopic (ICD-10-PCS; CPT 45378; principal; 2021-11-22 11:45)
DX: Z12.11 Encounter for screening for malignant neoplasm of colon (principal); D12.2 Benign neoplasm of ascending colon; Z86.010 Personal history of colon polyps
CPT/HCPCS: 45385; 88305; J2001; J2704

== ENCOUNTER 2022-02-21 09:17 | Outpatient (REF) | payer MEDICARE, SELFPAY ==
[2022-02-21 15:39] LABS: Anion Gap 7.9 mmol/L (3-11); BUN 19 mg/dL (7-18); CO2 25.1 mmol/L (21.0-32.0); CREATININE 0.8 mg/dL (0.70-1.30); Calcium 8.5 mg/dL (8.5-10.1); Chloride 106 mmol/L (98-107); Glucose 95 mg/dL (74-106); Potassium 4.3 mmol/L (3.5-5.1); Sodium 139 mmol/L (136-145)
[2022-02-22 17:56] LABS: PSA, Screening 1.9 ng/mL (<=4.5)
== END 2022-02-21 09:18 | disposition home or self-care (01) ==
LOC: NCHCN 09:17
PROVIDERS: PCP Family Medicine; Visit Provider Family Medicine
DX: I10 Essential (primary) hypertension (principal); E78.5 Hyperlipidemia, unspecified; Z12.5 Encounter for screening for malignant neoplasm of prostate
CPT/HCPCS: 80048; 84153

== ENCOUNTER → 2022-04-05 01:49 | Outpatient (CLI) | payer MEDICARE, SELFPAY ==
--- NOTE | 2022-04-05 | DI.US_ITS ---
Exam(s) US AAA SCREENING EXAM: US AAA SCREENING CLINICAL HISTORY: SCREENING FOR AAA, SMOKING HISTORY,ADULT PREVENTIVE CARE,Z00.00 COMPARISON: No exams were available for comparison FINDINGS: There is no prominent aneurysm in the abdominal aorta. However, there is lack of normal tapering dist ally. The distal abdominal aorta exhibits maximum diameter 2.6 cm. The proximal and mid abdominal ao rta exhibit diameters of 2.4 and 2.5 cm, respectively. Visualized common iliac arteries exhibit upper normal diameters. IMPRESSION: Mild increased diameter of the distal abdominal aorta when compared to the proximal abdominal aorta, indicating lack of normal tapering. Measurements as above. However, there is no prominent abdominal aortic aneurysm evident. DATA REPOSITORY:
== END ==
PROVIDERS: PCP Family Medicine; Visit Provider Family Medicine
DX: Z13.6 Encounter for screening for cardiovascular disorders (principal); Z87.891 Personal history of nicotine dependence
CPT/HCPCS: 76706

== ENCOUNTER 2022-12-14 09:42 | Outpatient (REF) | payer MEDICARE, SELFPAY ==
--- NOTE | 2022-12-14 08:45 | NASALBX_PTH ---
PATIENT: Carlos Alberto Rogers LOC: [facility] U#:[id number] AGE/SX: 66/M ROOM: RE12/14/[address]: Arnoldo Quiroz MD : 1955 BED: DIS: 12/14/2022 SPEC #: [id number] RECD: 12/14/22 12:28 STATUS: KARMA REQ #: [id number] INDIRA: 12/14/22 08:[address]: Arnoldo Quiroz DEPT: Surgical Specimen RECD BY: Mariel Sifuentes ENTERED: 12/14/22 12:28 SP TYPE: NASALBX OTHR DR: Tony Strickland Tissues: 1 - MUCOSA, NOS Procedures: GROSS AND MICRO LEVEL 4 Comments: [id number]
== END 2022-12-14 09:43 | disposition home or self-care (01) ==
LOC: LBN 09:42
PROVIDERS: PCP Family Medicine; Visit Provider Otolaryngology
DX: B07.8 Other viral warts (principal); J34.89 Other specified disorders of nose and nasal sinuses
CPT/HCPCS: 88305

== ENCOUNTER 2023-02-22 15:55 | Outpatient (REF) | payer MEDICARE, SELFPAY ==
[2023-02-22 16:41] LABS: Hemoglobin A1C 5.4 % (<5.7)
[2023-02-22 16:44] LABS: Anion Gap 8.8 mmol/L (3-11); BUN 17 mg/dL (7-18); CO2 26.2 mmol/L (21.0-32.0); CREATININE 0.8 mg/dL (0.70-1.30); Calcium 8.7 mg/dL (8.5-10.1); Calculated LDL 137 mg/dL (<100); Chloride 102 mmol/L (98-107); Cholesterol 218 mg/dL (<200); Estimated GFR 97.61 (mL/min/1.73m2); Glucose 104 mg/dL (74-106); HDL Cholesterol 70 mg/dL (40-60); Potassium 4.4 mmol/L (3.5-5.1); Sodium 137 mmol/L (136-145); Triglyceride 58 mg/dL (<150)
[2023-02-23 21:25] LABS: PSA, Screening 0.7 ng/mL (<=4.5)
== END 2023-02-22 15:56 | disposition home or self-care (01) ==
LOC: NCHCN 15:55
PROVIDERS: PCP Family Medicine; Visit Provider Family Medicine
DX: I10 Essential (primary) hypertension (principal); E66.8 Other obesity; Z68.31 Body mass index [BMI] 31.0-31.9, adult; Z12.5 Encounter for screening for malignant neoplasm of prostate; R79.89 Other specified abnormal findings of blood chemistry
CPT/HCPCS: 80048; 80061; 84153; 83036

== ENCOUNTER → 2023-07-28 01:00 | Outpatient (CLI) | payer MEDICARE, SELFPAY ==
--- NOTE | 2023-07-28 08:10 | DI.RAD_ITS ---
Exam(s) XR CHEST 2V PA LATERAL EXAM: XR CHEST 2V PA LATERAL CLINICAL HISTORY: COUGH SINCE COVID IN MARCH, R05.8, SOME SPUTUM TECHNIQUE: 2D digital imaging was performed. COMPARISON: No exams were available for comparison FINDINGS: HEART: Normal size. Aorta: Not dilated. PULMONARY VASCULATURE: Normal. LUNGS: Clear. PLEURAL SPACE: No pleural effusion or pneumothorax. BONE:Unremarkable for age. IMPRESSION: No acute abnormality. DATA REPOSITORY: RADIATION DOSE DELIVERED:
== END ==
PROVIDERS: PCP Family Medicine; Visit Provider Family Medicine
DX: R05.8 Other specified cough (principal)
CPT/HCPCS: 71046

== ENCOUNTER 2024-02-21 15:20 | Outpatient (REF) | payer MEDICARE, SELFPAY ==
[2024-02-21 19:31] LABS: Anion Gap 9.8 mmol/L (3-11); BUN 16 mg/dL (7-18); CO2 25.2 mmol/L (21.0-32.0); CREATININE 0.9 mg/dL (0.70-1.30); Calcium 8.7 mg/dL (8.5-10.1); Chloride 102 mmol/L (98-107); Estimated GFR 93.61 (mL/min/1.73m2); Glucose 103 mg/dL (74-106); Potassium 4.3 mmol/L (3.5-5.1); Sodium 137 mmol/L (136-145)
[2024-02-22 18:51] LABS: PSA, Screening 0.9 ng/mL (<=4.5)
== END 2024-02-21 15:21 | disposition home or self-care (01) ==
LOC: NCHCN 15:20
PROVIDERS: PCP Family Medicine; Visit Provider Family Medicine
DX: I10 Essential (primary) hypertension (principal); Z12.5 Encounter for screening for malignant neoplasm of prostate
CPT/HCPCS: 80048; 84153

== ENCOUNTER 2025-02-25 11:36 | Outpatient (REF) | payer MEDICARE, SELFPAY ==
[2025-02-25 17:08] LABS: HCT 40.8 % (40.0-50.0); HGB 14.1 g/dL (13.5-17.5); MCH 31.2 pg (27.0-33.0); MCHC 34.6 % (32.0-36.0); MCV 90 fL (80-95); MPV 10.6 fL (8.0-11.0); Platelet Count 204 10^3/uL (130-400); RBC 4.52 10^6/uL (4.36-5.78); RDW-SD 42.7 fL; WBC 3.93 10^3/uL (4.4-10.8)
[2025-02-25 17:32] LABS: Hemoglobin A1C 5.5 % (<5.7)
[2025-02-25 17:41] LABS: ALT 24 U/L (16-63); AST 21 U/L (15-37); Albumin 3.4 g/dL (3.4-5.0); Alkaline Phosphatase 41 U/L (46-116); Anion Gap 7.1 mmol/L (3-11); BUN 15 mg/dL (7-18); Bilirubin, Total 0.5 mg/dL (0.2-1.0); CO2 25.9 mmol/L (21.0-32.0); CREATININE 0.8 mg/dL (0.70-1.30); Calcium 9.2 mg/dL (8.5-10.1); Calculated LDL 66 mg/dL (<100); Chloride 103 mmol/L (98-107); Cholesterol 153 mg/dL (<200); Glucose 110 mg/dL (74-106); HDL Cholesterol 80 mg/dL (>or=40); Potassium 4.3 mmol/L (3.5-5.1); Sodium 136 mmol/L (136-145); TSH (W/Ref FT4) 2.03 uIU/mL (0.36-3.74); Total Protein 6.9 g/dL (6.4-8.2); Triglyceride 37 mg/dL (<150)
== END 2025-02-25 11:37 | disposition home or self-care (01) ==
LOC: NCHCN 11:36
PROVIDERS: PCP Family Medicine; Visit Provider Family Medicine
DX: E78.5 Hyperlipidemia, unspecified (principal); Z13.1 Encounter for screening for diabetes mellitus; I10 Essential (primary) hypertension; Z00.00 Encounter for general adult medical examination without abnormal findings
CPT/HCPCS: 80053; 80061; 85027; 83036; 84443